=== PATIENT | male | born 1960 | race Caucasian/White ===

== ENCOUNTER 2019-11-25 23:01 | Emergency (ER) | payer MEDICARE, OTHER ==
[2019-11-25] MEDS ORDERED: SODIUM CHLORIDE 0.9% 500 ML 500 ML IV STA (23:24)
--- NOTE | 2019-11-25 23:49 | ED ---
URI HPI - General Chief Complaint: Upper Respiratory Infection Stated Complaint: SOB, cough Time Seen by Provider: 11/25/19 23:23 Source: patient, family Mode of arrival: ambulatory Limitations: no limitations - History of Present Illness Initial Comments: Sanjay a 59-year-old male presents the emergency department today for evaluation of a cough. Patient reports that he's had a cough since August, he is treated with antibiotics and steroids at that time with some temporary improvement. Patient reports that he then developed a cough again throughout September and October. He again didn't dose of azithromycin which ended 5 days ago with minimal improvement. Patient reports that the cough is minimally productive, worse when laying down. Cough is associated with sinus pressure and patient reports he can feel sinus drainage in his throat. Patient reports that today he had a subjective fever but does not have a vomiting home and therefore was unable to check his temperature. He does report that he took an Aleve or ibuprofen prior to coming to the hospital. Patient denies any chest pain, nausea, vomiting, change in bowel or bladder habits. - Related Data Previous Rx's Medication Instructions Recorded Benzonatate [Tessalon Perles] 100 mg PO TID #12 cap 11/26/19 Fluticasone Nasal Hines [Flonase 1 spray EA NOSTRIL DAILY #1 bottle 11/26/19 Nasal Hines] Allergies Allergy/AdvReac Type Severity Reaction Status Date / Time No Known Allergies Allergy Verified 11/25/19 23:11 Review of Systems ROS Statement: Those systems with pertinent positive or pertinent negative responses have been documented in the HPI. ROS Other: All systems not noted in ROS Statement are negative. Past Medical History Past Medical History: No Reported History History of Any Multi-Drug Resistant Organisms: None Reported Past Surgical History: Hernia Repair, Orthopedic Surgery, Tonsillectomy Additional Past Surgical History / Comment(s): back surgery, Past Psychological History: No Psychological Hx Reported Smoking Status: Former smoker Past Alcohol Use History: Daily Past Drug Use History: Marijuana General Exam - General Exam Comments Initial Comments: Physical Exam GENERAL: Patient is well-developed and well-nourished. Patient is nontoxic and well- hydrated and is in no distress. HENT: Normocephalic, Atraumatic. EYES: PERRL, EOMI PULMONARY: Unlabored respirations. No audible rales rhonchi or wheezing was noted. CARDIOVASCULAR: There is a regular rate and rhythm without any murmurs gallops or rubs. ABDOMEN: Soft and nontender with normal bowel sounds. SKIN: Skin is clear with no lesions or rashes and otherwise unremarkable. : Deferred NEUROLOGIC: Patient is alert and oriented x3. Moving all extremities spontaneously MUSCULOSKELETAL: Normal extremities with adequate strength and full range of motion. No lower extremity swelling or edema. No calf tenderness. PSYCHIATRIC: Normal psychiatric evaluation. Limitations: no limitations Course Vital Signs 11/25/19 11/25/19 11/25/19 23:06 23:32 23:38 Temperature 98.4 F 99.4 F Pulse Rate 97 90 Respiratory 18 20 20 Rate Blood Pressure 163/98 163/101 O2 Sat by Pulse 96 94 L Oximetry Medical Decision Making - Medical Decision Making Patient was seen and evaluated history is obtained from patient 5-year-old male with multiple months of postnasal drip nonproductive cough which improved with steroids he's done 2 rounds of antibiotics in the past she's been using Flonase for approximately one month Physical exam is relatively unremarkable patient is in no acute distress he does have a minimally productive cough at times Chest x-ray no acute findings Labs unremarkable no findings of the labs which would be consistent with rotavirus, in addition the patient's history is not consistent with this. These results were discussed with patient was reassured and discharged home in stable condition. - Lab Data Result diagrams: 11/25/19 23:38 11/25/19 23:38 Lab Results 11/25/19 11/25/19 Range/Units 23:38 23:38 WBC 10.2 (3.8-10.6) k/uL RBC 5.05 (4.30-5.90) m/uL Hgb 14.9 (13.0-17.5) gm/dL Hct 45.0 (39.0-53.0) % MCV 89.1 (80.0-100.0) fL MCH 29.5 (25.0-35.0) pg MCHC 33.1 (31.0-37.0) g/dL RDW 13.3 (11.5-15.5) % Plt Count 281 (150-450) k/uL Neutrophils % 72 % Lymphocytes % 15 % Monocytes % 6 % Eosinophils % 4 % Basophils % 1 % Neutrophils # 7.3 (1.3-7.7) k/uL Lymphocytes # 1.6 (1.0-4.8) k/uL Monocytes # 0.6 (0-1.0) k/uL Eosinophils # 0.5 (0-0.7) k/uL Basophils # 0.1 (0-0.2) k/uL Sodium 137 (137-145) mmol/L Potassium 4.5 (3.5-5.1) mmol/L Chloride 103 (98-107) mmol/L Carbon Dioxide 26 (22-30) mmol/L Anion Gap 8 mmol/L BUN 21 H (9-20) mg/dL Creatinine 1.08 (0.66-1.25) mg/dL Est GFR (CKD-EPI)AfAm 86 (>60 ml/min/1.73 sqM) Est GFR (CKD-EPI)NonAf 74 (>60 ml/min/1.73 sqM) Glucose 102 H (74-99) mg/dL Calcium 9.7 (8.4-10.2) mg/dL C-Reactive Protein <5.0 (<10.0) mg/L - EKG Data -: EKG Interpreted by Ia EKG shows normal: sinus rhythm Rate: normal EKG Comments: An EKG was obtained due to complaint of cough and shortness of breath, an EKG was obtained at 2318, rate is 86 rhythm is sinus there is a normal axis, normal intervals, RI 170, cure CD8, QTC is 421 there are no acute ST elevations or depressions no evidence of acute ischemia or infarction Disposition Clinical Impression: URI (upper respiratory infection) Disposition: HOME SELF-CARE Condition: Stable Prescriptions: Fluticasone Nasal Hines [Flonase Nasal Hines] 1 spray EA NOSTRIL DAILY #1 bottle Benzonatate [Tessalon Perles] 100 mg PO TID #12 cap Is patient prescribed a controlled substance at d/c from ED?: No Referrals: Felice Vaughn MD [Primary Care Provider] - 1-2 days
[2019-11-26 00:10] LABS: Basophils # (A) 0.1 k/uL (0-0.2); Basophils % (A) 1 %; Eosinophils # (A) 0.5 k/uL (0-0.7); Eosinophils % (A) 4 %; HGB 14.9 gm/dL (13.0-17.5); Lymphocytes # (A) 1.6 k/uL (1.0-4.8); Lymphocytes % (A) 15 %; MCH 29.5 pg (25.0-35.0); MCHC 33.1 g/dL (31.0-37.0); MCV 89.1 fL (80.0-100.0); Mean Platelet Volume 8.5; Monocytes # (A) 0.6 k/uL (0-1.0); Monocytes % (A) 6 %; Neutrophils # (A) 7.3 k/uL (1.3-7.7); Neutrophils % (A) 72 %; Platelet Count 281 k/uL (150-450); RBC 5.05 m/uL (4.30-5.90); RDW 13.3 % (11.5-15.5); WBC 10.2 k/uL (3.8-10.6)
--- NOTE | 2019-11-26 00:21 | XR ---
EXAMINATION TYPE: XR chest 1V DATE OF EXAM: 11/26/2019 COMPARISON: NONE HISTORY: Cough TECHNIQUE: Single view FINDINGS: Heart and mediastinum are normal. Lungs are clear of consolidation. There is small linear d ensity left lower lobe. There are chest leads. Bony thorax is intact. IMPRESSION: Mild subsegmental atelectasis left lower lobe. Normal heart.
[2019-11-26 00:30] LABS: African American GFR (CKD) 86 (>60 ml/min/1.73 sqM); Anion Gap 8 mmol/L; Blood Urea Nitrogen 21 mg/dL (9-20); Calcium 9.7 mg/dL (8.4-10.2); Carbon Dioxide 26 mmol/L (22-30); Chloride 103 mmol/L (98-107); Glucose 102 mg/dL (74-99); Non-African American GFR(CKD) 74 (>60 ml/min/1.73 sqM); Potassium 4.5 mmol/L (3.5-5.1); Sodium 137 mmol/L (137-145)
[2019-11-26 00:41] LABS: C Reactive Protein <5.0 mg/L (<10.0)
[2019-11-26 01:10] VITALS: BP 155/95; PULSE 82; RESP 16; TEMP 98.7
== END 2019-11-26 01:11 | disposition home or self-care (01) ==
LOC: EC 23:01
DX: J06.9 Acute upper respiratory infection, unspecified (principal); Z87.891 Personal history of nicotine dependence
CPT/HCPCS: 36415; 71045; 80048; 84145; 85025; 86140; 96360; 99285

== ENCOUNTER → 2020-08-03 | Outpatient (CLI) | payer MEDICARE ==
--- NOTE | 2020-08-03 12:58 | CT ---
EXAMINATION TYPE: CT sinus wo con DATE OF EXAM: 08/03/2020 COMPARISON: None HISTORY: Cough and sinus congestion. CT DLP: 618 mGycm CONTRAST: 0 mL of Isovue 300 The paranasal sinuses are examined in the axial plane at 2 mm thick sections. Reconstructed images i n the coronal plane were obtained. Because thickening is within the bilateral maxillary sinuses, right more so than left. Mild mucosal thickening is through bilateral ethmoid air cells. The sphenoid sinuses are clear. Frontal sinuses and mucosal thickening and opacification. The septum is evaluated. There is septal deviation to the right. Right septal spur is present. The ostiomeatal units are obstructed bilaterally IMPRESSIONS: 1. Chronic appearing sinusitis throughout the paranasal sinuses. 2. Obstructed ostiomeatal units.
== END | disposition home or self-care (01) ==
LOC: RADCTMAIN 12:13
PROVIDERS: ATTEND Otolaryngology
DX: J32.9 Chronic sinusitis, unspecified (principal); J34.89 Other specified disorders of nose and nasal sinuses; J98.8 Other specified respiratory disorders
CPT/HCPCS: 70486; 94060; 94726; 94729

== ENCOUNTER 2021-04-01 07:39 | Emergency (ER) | payer MEDICARE ==
[2021-04-01 07:44] VITALS: TEMP 98.1
[2021-04-01] MEDS ORDERED: IPRATROPIUM-ALBUTEROL 3 ML NEB INHALATION STA (08:00)
[2021-04-01] MEDS ORDERED: methylPREDNISolone SOD SUCCI 125 MG/2 ML VIAL IV STA (08:00)
--- NOTE | 2021-04-01 08:06 | ED ---
General Adult HPI - General Chief complaint: Shortness of Breath Stated complaint: cough, SOB Time Seen by Provider: 04/01/21 07:49 Source: patient Mode of arrival: ambulatory Limitations: no limitations - History of Present Illness Initial comments: 60-year-old male with a past medical history of back surgery, hernia repair, tonsillectomy presents to the emergency room for chronic cough times over 1 year. Patient states that this started in August 2019. States that he had a "breathing test" which was negative. He had a computed tomography scan of his sinuses which showed severe sinusitis so patient's doctor was thinking this could be causing his cough. He states that since that time he has been on and off antibiotic and steroids. He did have 3 months of relief at the end of last year however in August this started again. Patient has recently finished a course of doxycycline and a Medrol Dosepak and is currently on ciprofloxacin and Tessalon Perles which do not seem to be helping. Patient woke up this morning and had a coughing fit and called his primary care doctor on 5 AM who recommended he come to the emergency room for possible admission for IV antibiotics. He denies fevers at home. Patient denies any smoking history but is exposed to secondhand smoke through his . He denies any history of asthma. Patient has not yet seen a wooden fence erector. He does have an appointment with GI for scope in 3 days as his doctor sent him up at this as his cough could be related to GERD. Doubled his protonix. Patient has no other complaints at this time including shortness of breath, chest pain, abdominal pain, nausea or vomiting, headache, or visual changes. - Related Data Home Medications Medication Instructions Recorded Confirmed Benzonatate [Tessalon Perles] 100 mg PO TID PRN 03/30/21 04/01/21 Cetirizine HCl [Zyrtec] 10 mg PO DAILY@1200 03/30/21 04/01/21 Docusate Sodium [Dok] 100 mg PO BID PRN 03/30/21 04/01/21 HYDROcodone/APAP 10-325MG [[place] 1 tab PO TID 03/30/21 04/01/21 10-325] Montelukast Sodium [Singulair] 10 mg PO DAILY 03/30/21 04/01/21 Pantoprazole [Protonix] 40 mg PO BID 03/30/21 04/01/21 RX: Ciprofloxacin HCl 500 mg PO BID 03/30/21 04/01/21 Previous Rx's Medication Instructions Recorded RX: Albuterol Inhaler [Ventolin 2 puff INHALATION RT-QID PRN #1 04/01/21 Hfa Inhaler] inhaler RX: predniSONE 50 mg PO DAILY #5 tablet 04/01/21 Allergies Allergy/AdvReac Type Severity Reaction Status Date / Time No Known Allergies Allergy Verified 04/01/21 09:46 Review of Systems ROS Statement: Those systems with pertinent positive or pertinent negative responses have been documented in the HPI. ROS Other: All systems not noted in ROS Statement are negative. Past Medical History Past Medical History: GERD/Reflux Additional Past Medical History / Comment(s): "Chronic cough since 09/14,recurring sinus infections from acid reflux, continous mucous draining down throat when lay down". Sciaticia right leg. History of Any Multi-Drug Resistant Organisms: None Reported Past Surgical History: Back Surgery, Hernia Repair, Tonsillectomy Additional Past Surgical History / Comment(s): Back fusion with hardware to L5. EGD. Past Anesthesia/Blood Transfusion Reactions: No Reported Reaction, Postoperative Nausea & Vomiting (PONV) Additional Past Anesthesia/Blood Transfusion Reaction / Comment(s): Problems with Constipation after Anesthesia. "High tolerance to medications." Past Psychological History: No Psychological Hx Reported Smoking Status: Never smoker Past Alcohol Use History: Daily Past Drug Use History: Marijuana - Past Family History Father Family Medical History: Deep Vein Thrombosis (DVT), Myocardial Infarction ([place]) General Exam Limitations: no limitations General appearance: alert Head exam: Present: atraumatic Eye exam: Present: normal appearance, PERRL, EOMI. Absent: scleral icterus, conjunctival injection, periorbital swelling ENT exam: Present: normal exam, mucous membranes moist Neck exam: Present: normal inspection, full ROM Respiratory exam: Present: normal lung sounds bilaterally, wheezes (bilateral wheezes). Absent: respiratory distress, rales, rhonchi, stridor Cardiovascular Exam: Present: regular rate, normal rhythm, normal heart sounds. Absent: systolic murmur, diastolic murmur, rubs, gallop, clicks GI/Abdominal exam: Present: soft, normal bowel sounds. Absent: distended, tenderness, guarding, rebound, rigid Neurological exam: Present: alert Psychiatric exam: Present: normal affect, normal mood Course Vital Signs 04/01/21 04/01/21 04/01/21 07:42 08:10 08:16 Temperature 98.1 F Pulse Rate 79 80 80 Respiratory 18 20 Rate Blood Pressure 153/91 157/92 O2 Sat by Pulse 96 99 Oximetry 04/01/21 04/01/21 08:28 09:48 Temperature Pulse Rate 82 79 Respiratory 20 Rate Blood Pressure 143/80 O2 Sat by Pulse 95 Oximetry EKG Findings - EKG Comments: EKG Findings:: Normal sinus rhythm, ventricular rate 79, CO interval 168, QTc 442 Medical Decision Making - Medical Decision Making Vitals are stable. Patient is 95-99% on room air. Patient is well appearing. respirations are even and unlabored. Patient is not in any respiratory distress. CBC is unremarkable. White blood cell count is normal at 8. CMP unremarkable. Troponin negative. D-dimer negative. EKG nonischemic. Coronavirus is negative. Chest x-ray shows no acute process. I did speak with Dr. Henry regarding this case as patient was under the impression that he was when to be admitted. However I agree with Dr. Mendez, patient does not meet any admission criteria he will need to follow up outpatient and his endoscopy as well as primary care's office. I did also give him referral to pulmonology. We will restart patient on steroids as he states this is the only thing that has helped him in the past. He will return here for any worsening symptoms. - Lab Data Result diagrams: 04/01/21 08:16 04/01/21 08:16 Lab Results 04/01/21 04/01/21 04/01/21 Range/Units 08:16 08:16 08:16 WBC 8.0 (3.8-10.6) k/uL RBC 5.03 (4.30-5.90) m/uL Hgb 15.3 (13.0-17.5) gm/dL Hct 46.4 (39.0-53.0) % MCV 92.2 (80.0-100.0) fL MCH 30.4 (25.0-35.0) pg MCHC 32.9 (31.0-37.0) g/dL RDW 13.0 (11.5-15.5) % Plt Count 310 (150-450) k/uL MPV 8.7 Neutrophils % 67 % Lymphocytes % 19 % Monocytes % 7 % Eosinophils % 4 % Basophils % 1 % Neutrophils # 5.4 (1.3-7.7) k/uL Lymphocytes # 1.5 (1.0-4.8) k/uL Monocytes # 0.6 (0-1.0) k/uL Eosinophils # 0.3 (0-0.7) k/uL Basophils # 0.1 (0-0.2) k/uL PT 10.6 (9.0-12.0) sec INR 1.0 (<1.2) APTT 24.9 (22.0-30.0) sec D-Dimer <0.17 (<0.60) mg/L FEU Sodium 138 (137-145) mmol/L Potassium 4.5 (3.5-5.1) mmol/L Chloride 104 (98-107) mmol/L Carbon Dioxide 26 (22-30) mmol/L Anion Gap 8 mmol/L BUN 22 H (9-20) mg/dL Creatinine 1.04 (0.66-1.25) mg/dL Est GFR (CKD-EPI)AfAm 90 (>60 ml/min/1.73 sqM) Est GFR (CKD-EPI)NonAf 78 (>60 ml/min/1.73 sqM) Glucose 105 H (74-99) mg/dL Plasma Lactic Acid Dillon (0.7-2.0) mmol/L Calcium 9.7 (8.4-10.2) mg/dL Magnesium 2.3 (1.6-2.3) mg/dL Total Bilirubin 0.8 (0.2-1.3) mg/dL AST 26 (17-59) U/L ALT 21 (4-49) U/L Alkaline Phosphatase 54 (38-126) U/L Troponin I (0.000-0.034) ng/mL NT-Pro-B Natriuret Pep pg/mL Total Protein 7.1 (6.3-8.2) g/dL Albumin 4.5 (3.5-5.0) g/dL Coronavirus (PCR) (Not Detectd) 04/01/21 04/01/21 04/01/21 Range/Units 08:16 08:16 08:16 WBC (3.8-10.6) k/uL RBC (4.30-5.90) m/uL Hgb (13.0-17.5) gm/dL Hct (39.0-53.0) % MCV (80.0-100.0) fL MCH (25.0-35.0) pg MCHC (31.0-37.0) g/dL RDW (11.5-15.5) % Plt Count (150-450) k/uL MPV Neutrophils % % Lymphocytes % % Monocytes % % Eosinophils % % Basophils % % Neutrophils # (1.3-7.7) k/uL Lymphocytes # (1.0-4.8) k/uL Monocytes # (0-1.0) k/uL Eosinophils # (0-0.7) k/uL Basophils # (0-0.2) k/uL PT (9.0-12.0) sec INR (<1.2) APTT (22.0-30.0) sec D-Dimer (<0.60) mg/L FEU Sodium (137-145) mmol/L Potassium (3.5-5.1) mmol/L Chloride (98-107) mmol/L Carbon Dioxide (22-30) mmol/L Anion Gap mmol/L BUN (9-20) mg/dL Creatinine (0.66-1.25) mg/dL Est GFR (CKD-EPI)AfAm (>60 ml/min/1.73 sqM) Est GFR (CKD-EPI)NonAf (>60 ml/min/1.73 sqM) Glucose (74-99) mg/dL Plasma Lactic Acid Dillon 1.0 (0.7-2.0) mmol/L Calcium (8.4-10.2) mg/dL Magnesium (1.6-2.3) mg/dL Total Bilirubin (0.2-1.3) mg/dL AST (17-59) U/L ALT (4-49) U/L Alkaline Phosphatase (38-126) U/L Troponin I <0.012 (0.000-0.034) ng/mL NT-Pro-B Natriuret Pep 53 pg/mL Total Protein (6.3-8.2) g/dL Albumin (3.5-5.0) g/dL Coronavirus (PCR) (Not Detectd) 04/01/21 Range/Units 08:16 WBC (3.8-10.6) k/uL RBC (4.30-5.90) m/uL Hgb (13.0-17.5) gm/dL Hct (39.0-53.0) % MCV (80.0-100.0) fL MCH (25.0-35.0) pg MCHC (31.0-37.0) g/dL RDW (11.5-15.5) % Plt Count (150-450) k/uL MPV Neutrophils % % Lymphocytes % % Monocytes % % Eosinophils % % Basophils % % Neutrophils # (1.3-7.7) k/uL Lymphocytes # (1.0-4.8) k/uL Monocytes # (0-1.0) k/uL Eosinophils # (0-0.7) k/uL Basophils # (0-0.2) k/uL PT (9.0-12.0) sec INR (<1.2) APTT (22.0-30.0) sec D-Dimer (<0.60) mg/L FEU Sodium (137-145) mmol/L Potassium (3.5-5.1) mmol/L Chloride (98-107) mmol/L Carbon Dioxide (22-30) mmol/L Anion Gap mmol/L BUN (9-20) mg/dL Creatinine (0.66-1.25) mg/dL Est GFR (CKD-EPI)AfAm (>60 ml/min/1.73 sqM) Est GFR (CKD-EPI)NonAf (>60 ml/min/1.73 sqM) Glucose (74-99) mg/dL Plasma Lactic Acid [place] (0.7-2.0) mmol/L Calcium (8.4-10.2) mg/dL Magnesium (1.6-2.3) mg/dL Total Bilirubin (0.2-1.3) mg/dL AST (17-59) U/L ALT (4-49) U/L Alkaline Phosphatase (38-126) U/L Troponin I (0.000-0.034) ng/mL NT-Pro-B Natriuret Pep pg/mL Total Protein (6.3-8.2) g/dL Albumin (3.5-5.0) g/dL Coronavirus (PCR) Not Detected (Not Detectd) Disposition Clinical Impression: Chronic cough Disposition: HOME SELF-CARE Condition: Good Instructions (If sedation given, give patient instructions): Chronic Cough (ED) Additional Instructions: Please follow up with Dr. Vaughn. Follow-up with pulmonology. Return to the emergency room for any worsening symptoms. Prescriptions: RX: predniSONE 50 mg PO DAILY #5 tablet RX: Albuterol Inhaler [Ventolin Hfa Inhaler] 2 puff INHALATION RT-QID PRN #1 inhaler PRN Reason: Shortness Of Breath Is patient prescribed a controlled substance at d/c from ED?: No Referrals: Felice Vaughn MD [Primary Care Provider] - 1-2 days Royal Gonzales MD [STAFF PHYSICIAN] - 1-2 days Time of Disposition: 10:20
[2021-04-01 08:33] VITALS: RESP 20
[2021-04-01 08:42] LABS: Basophils # (A) 0.1 k/uL (0-0.2); Basophils % (A) 1 %; Eosinophils # (A) 0.3 k/uL (0-0.7); Eosinophils % (A) 4 %; HCT 46.4 % (39.0-53.0); HGB 15.3 gm/dL (13.0-17.5); Lymphocytes # (A) 1.5 k/uL (1.0-4.8); Lymphocytes % (A) 19 %; MCH 30.4 pg (25.0-35.0); MCHC 32.9 g/dL (31.0-37.0); MCV 92.2 fL (80.0-100.0); Mean Platelet Volume 8.7; Monocytes # (A) 0.6 k/uL (0-1.0); Monocytes % (A) 7 %; Neutrophils # (A) 5.4 k/uL (1.3-7.7); Neutrophils % (A) 67 %; Platelet Count 310 k/uL (150-450); RBC 5.03 m/uL (4.30-5.90)
[2021-04-01 08:47] LABS: Albumin 4.5 g/dL (3.5-5.0); Calcium 9.7 mg/dL (8.4-10.2); Magnesium 2.3 mg/dL (1.6-2.3); Potassium 4.5 mmol/L (3.5-5.1); Total Bilirubin 0.8 mg/dL (0.2-1.3); Total Protein 7.1 g/dL (6.3-8.2)
[2021-04-01 09:01] LABS: Partial Thromboplastin Time 24.9 sec (22.0-30.0); Prothrombin Time 10.6 sec (9.0-12.0)
--- NOTE | 2021-04-01 09:12 | XR ---
EXAMINATION TYPE: XR chest 2V DATE OF EXAM: 04/01/2021 COMPARISON: 11/25/2019 INDICATION: Difficulty breathing TECHNIQUE: Single frontal view of the chest is obtained. FINDINGS: The heart size is normal. The pulmonary vasculature is normal. The lungs are clear. IMPRESSION: 1. No acute pulmonary process.
[2021-04-01 09:49] VITALS: BP 143/80; PULSE 79
== END 2021-04-01 10:36 | disposition home or self-care (01) ==
LOC: EC 07:39
DX: R05 Cough (principal); K21.9 Gastro-esophageal reflux disease without esophagitis; F12.90 Cannabis use, unspecified, uncomplicated; Z79.51 Long term (current) use of inhaled steroids; Z79.52 Long term (current) use of systemic steroids; Z79.899 Other long term (current) drug therapy
CPT/HCPCS: 36415; 94640; 93005; 85379; 83880; 80053; 83605; 83735; 84484; 85025; 85610; 85730; 87635; 71046; 96374; 99284; J2930

== ENCOUNTER 2021-04-04 09:56 | Day surgery (SDC) | payer MEDICARE ==
[2021-03-30 14:25] VITALS: BMI 31.5
[~2021-04-04 09:56] MED LIST: LIDOCAINE 1% (10MG/ML) FOR IV START INTRADERMA PRN
[2021-04-04] MEDS: LACTATED RINGERS 1,000 ML IV SCH ×2 (10:16→10:25)
[2021-04-04 10:33] VITALS: TEMP 97.5
[2021-04-04] MEDS ORDERED: MIDAZOLAM 2 MG/2 ML VIAL ONE (11:13)
[2021-04-04] MEDS ORDERED: PROPOFOL 10 MG/ML 20 ML VIAL IV ONE (11:13)
[2021-04-04] MEDS ORDERED: fentaNYL (PF) 50 MCG/ML 2 ML AMP ONE (11:13)
--- NOTE | 2021-04-04 11:34 | P.PCN ---
Date of Procedure: 04/04/21 Description of Procedure: BRIEF HISTORY: Patient is a 60-year-old male presenting for outpatient esophagogastroduodenoscopy for evaluation of GERD and chronic cough. Patient reports a long-standing history of reflux previously on omeprazole currently on pantoprazole. He reports episodes of coughing predominantly in the morning with associated shortness of breath.. PROCEDURE PERFORMED: Esophagogastroduodenoscopy with biopsy. PREOPERATIVE DIAGNOSIS: GERD, chronic cough. ESTIMATED BLOOD LOSS: Minimal. IV sedation per anesthesia. PROCEDURE: After informed consent was obtained, the patient was brought into the endoscopy unit. IV sedation was administered by Anesthesia under continuous monitoring. Initially the Olympus GIF-190 video endoscope was inserted into the mouth. Esophagus intubated without any difficulty. It was gradually advanced into the stomach and duodenum and carefully examined. The bulb and the second part of the duodenum appeared normal, with biopsies taken to rule out celiac sprue. The scope at this time was withdrawn to the stomach, adequately insufflated with air, and upon careful examination, mucosa of the antrum, body, cardia and the fundus appeared normal, with biopsies taken of the antrum and body with some mild scattered erythema in the antrum and body suggestive of mild gastritis. The scope was then withdrawn into the esophagus. The GE junction was located at 39 cm from the incisors. The esophagus appeared normal, with biopsies of the lower esophagus and midesophagus. There were no erosions or ulcerations seen and the patient tolerated the procedure well. IMPRESSION: 1. Mild gastritis. 2. Biopsies of the duodenum, antrum and body, lower esophagus and midesophagus. RECOMMENDATIONS: The findings of this examination were discussed with the patient and his family. Okay to resume diet. Okay to resume medications. Await pathology from biopsies. Continue current medical management.
[2021-04-04 11:54] VITALS: BP 147/82; PULSE 55; RESP 18
== END 2021-04-04 12:40 | disposition home or self-care (01) ==
LOC: ORWHC2ENDO 09:56
PROVIDERS: ATTEND Internal Medicine
DX: K21.9 Gastro-esophageal reflux disease without esophagitis (principal); K29.50 Unspecified chronic gastritis without bleeding; K21.00 Gastro-esophageal reflux disease with esophagitis, without bleeding; Z87.891 Personal history of nicotine dependence; Z98.890 Other specified postprocedural states; Z79.891 Long term (current) use of opiate analgesic; Z79.52 Long term (current) use of systemic steroids; Z79.899 Other long term (current) drug therapy
CPT/HCPCS: 88305; 43239; J2250; J3010; J2704

== ENCOUNTER → 2021-06-06 | Outpatient (CLI) | payer MEDICARE | END | disposition home or self-care (01) | LOC: LABWHC1 13:24 | PROVIDERS: ATTEND Otolaryngology | DX: L50.0 Allergic urticaria (principal) | CPT/HCPCS: 36415; 86001 ==

== ENCOUNTER → 2021-06-16 | Outpatient (CLI) | payer MEDICARE ==
--- NOTE | 2021-06-16 18:22 | CT ---
EXAMINATION TYPE: CT facial bones wo con DATE OF EXAM: 06/16/2021 COMPARISON: None immediately HISTORY: chronic sinus pressure CT DLP: 599.[address] of the paranasal sinuses was performed in the axial and coronal planes. Bone and soft tissue settings are submitted. Moderate mucosal thickening is noted of the right maxillary sinus. Mild mucosal thickening left maxil mathew sinus. Moderate opacification of the remaining ethmoid air cells. Mild mucosal thickening of the sphenoid sinus and frontal sinuses. Ostiomeatal units are obstructed bilaterally. The nasal septum is midline. No bony destructive changes are seen within the field of view. IMPRESSION: Chronic pansinusitis
--- NOTE | 2021-06-16 18:23 | CT ---
EXAMINATION TYPE: CT chest w con DATE OF EXAM: 06/16/2021 COMPARISON: None HISTORY: SOB, COPD CT DLP: 458.9 mGycm Automated exposure control for dose reduction was used. CONTRAST: CT scan of the chest is performed with IV Contrast, patient injected with 100 mL of Isovue 370. FINDINGS: LUNGS: The lungs are grossly clear, there is no concerning parenchymal mass or nodule identified. T here is no pleural effusion or pneumothorax seen. The tracheobronchial tree is patent. MEDIASTINUM: There are no greater than 1 cm hilar or mediastinal lymph nodes. No pericardial effusi on is seen. Thoracic aorta is of normal caliber. The heart is not enlarged. UPPER ABDOMEN: No significant abnormality appreciated. OTHER: No additional significant abnormality is seen. IMPRESSION: Unremarkable CT chest
== END | disposition home or self-care (01) ==
LOC: RADCTMAIN 16:06
PROVIDERS: ATTEND Family Medicine
DX: J44.9 Chronic obstructive pulmonary disease, unspecified (principal); J32.4 Chronic pansinusitis
CPT/HCPCS: 70486; 71260; Q9967

== ENCOUNTER 2021-08-02 07:18 | Day surgery (SDC) | payer MEDICARE ==
[2021-07-31 15:01] VITALS: BMI 30.7
[~2021-08-02 07:18] MED LIST changes: +DEXAMETHASONE SOD PHOSPHATE 4 MG/ML 1 ML VIAL IV ONE; +DEXAMETHASONE SOD PHOSPHATE 4 MG/ML 1 ML VIAL IV PRN; +FAMOTIDINE 20 MG/2 ML VIAL IV PRN; +HYDROmorphone 0.5 MG/0.5 ML SYRINGE IVP PRN; +LACTATED RINGERS 1,000 ML IV SCH; +MIDAZOLAM 2 MG/2 ML VIAL IV PRN; +ONDANSETRON 4 MG/2 ML VIAL IVP ONE; +ONDANSETRON 4 MG/2 ML VIAL IVP PRN; +OXYMETAZOLINE 0.05% NASL SPRAY 1 SPRAY BOTTLE EA NOSTRIL PRN
[2021-08-02] MEDS ORDERED: LACTATED RINGERS 1,000 ML IV ONE ×2 (08:49→11:04)
[2021-08-02] MEDS ORDERED: HYDROmorphone (PF) 1 MG/ML ONE (08:50)
[2021-08-02] MEDS ORDERED: LIDOCAINE 1% INJ 10MG/ML (20 ML MDV) ONE (08:50)
[2021-08-02] MEDS ORDERED: PROPOFOL 10 MG/ML 20 ML VIAL IV ONE (08:50)
[2021-08-02] MEDS ORDERED: .fentaNYL (PF) 50 MCG/ML 2 ML AMP ONE (08:50)
[2021-08-02] MEDS ORDERED: MIDAZOLAM 2 MG/2 ML VIAL ONE (08:50)
[2021-08-02] MEDS ORDERED: SUCCINYLCHOLINE CHLORIDE 100 MG/5 ML SYR IV ONE (08:50)
[2021-08-02] MEDS ORDERED: LIDOCAINE 1%-EPI 1:100,000 20 ML VIAL SUBMUCOSAL ONE (09:20)
--- NOTE | 2021-08-02 10:15 | P.OP ---
Date of Procedure: 08/02/21 Preoperative Diagnosis: The the nasal septum Inferior turbinate hypertrophy Chronic sinusitis Postoperative Diagnosis: Same Procedure(s) Performed: Septoplasty OutFracture and submucous resection of the inferior turbinates Bilateral endoscopic sinus surgery including bilateral maxillary antrostomy with removal of tissue from the maxillary sinuses, bilateral anterior and posterior ethmoidectomy bilateral frontal sinusotomy with removal of tissue from The Frontal Sinuses and Bilateral Sphenoidotomy with Removal of Tissue from the Sphenoid Sinuses Anesthesia: SASCHAA Surgeon: Rell Chester Estimated Blood Loss (ml): 10 Pathology: other (Nasal septal bone and cartilage and sinus contents) Condition: stable Disposition: PACU Indications for Procedure: This is a 61-year-old white male whose had difficulties with chronic nasal airway obstruction congestion recurrent and chronic sinusitis with chronic postnasal drainage. Computed tomography scan showed pansinus disease Operative Findings: Nasal septum deviated to the right with inferior turbinate hypertrophy bilaterally. The sinuses had small polyps and cysts bilaterally the ethmoid frontal and sphenoid sinuses had diffuse mucosal thickening and small polyps Description of Procedure: The patient was brought into the operative suite and placed in a supine position. The patient underwent induction of general anesthesia with oral endotracheal intubation without difficulty. The patient was prepped and draped in the usual aseptic fashion with the orbits in the operating field for monitoring to the case and the computed tomography scan was on the computer screen for review throughout the case. 1% lidocaine with 1 :100,000 epinephrine was infused submucosally into both sides of the nasal septum as well as the lateral nasal wall and anterior tips of the middle turbinates. While this was taking vasoconstrictive effect the inferior turbinates were infractured with [place] elevator and partial submucous resection of the inferior turbinates was performed with a portion of the submucosal soft tissue and the inferior turbinate bone removed with Coblation device. The inferior turbinates were then outfractured with the [place] elevator. A left hemitransfixion incision was then made with the mucoperichondrial and mucoperiosteal flap on the left elevated. The bony cartilaginous junction was disarticulated and the mucoperiosteal flap on the right was elevated. Bony nasal septal deformities were removed with Danie forceps and an inferior cartilaginous strip was removed leaving a full 1.5 cm caudal strut. Checking intranasally this corrected the nasoseptal deformities and the hemitransfixion incision was closed with a running 4-0 chromic suture. Full 0 endoscopic examination is performed bilaterally. Beginning on the left, the middle turbinate was medialized. The maxillary ostium was located with a ballpoint probe and an infundibulotomy was performed followed by uncinectomy. The maxillary antrostomy was enlarged at the expense of the anterior and posterior fontanelle taking care anteriorly not to injure the lacrimal bone. The maxillary sinus was evaluated with 30 and 70 endoscope .[Abnormal appearing tissue was removed from the maxillary sinus]. Anterior and posterior ethmoidectomy were then performed from anterior to posterior to the level of the skull base. The roof of the anterior ethmoid air cells were then cleaned from posterior to anterior using up-biting Blakesley forceps. The frontal sinus was opened with a curved suction and giraffe forceps. The frontal sinus was then explored with 30 endoscope.[Abnormal tissue was removed from the frontal sinus]. The sphenoid sinus was opened with straight suction and straight Blakesley forceps. The sphenoid sinus was then explored with 0 endoscope.[Abnormal tissue was removed from the sphenoid sinus]. Attention was then turned to the right where the procedures were followed as they had been on the left. [Nasopore nasal dressing was placed in the middle meatus bilaterally under direct visualization]. Bilateral Luna airway splints coated with bacitracin ointment were placed and sutured transseptally with a 4-0 nylon suture. The patient was suctioned in oral gastric fashion and was allowed to emerge from general anesthesia having tolerated procedure well and was extubated in the operating suite and transferred to the postoperative recovery area in satisfacto ry condition.
[2021-08-02 10:25] VITALS: TEMP 97.4
[2021-08-02 10:34] VITALS: RESP 16
[2021-08-02] MEDS ORDERED: ACETAMINOPHEN TAB 500 MG TAB PO ONE (11:30)
[2021-08-02] MEDS ORDERED: ACETAMINOPHEN TAB 500 MG TAB ONE (11:38)
[2021-08-02 11:40] VITALS: BP 131/80; PULSE 63
== END 2021-08-02 11:59 | disposition home or self-care (01) ==
LOC: OR 07:18
PROVIDERS: ATTEND Otolaryngology
DX: J34.2 Deviated nasal septum (principal); J32.9 Chronic sinusitis, unspecified; J34.3 Hypertrophy of nasal turbinates; K21.9 Gastro-esophageal reflux disease without esophagitis; Z82.61 Family history of arthritis; Z84.89 Family history of other specified conditions; Z98.890 Other specified postprocedural states; Z79.891 Long term (current) use of opiate analgesic; Z79.899 Other long term (current) drug therapy; Z91.048 Other nonmedicinal substance allergy status
CPT/HCPCS: 88305; 88300; 30520; 31267; 31253; 31259; 30140; J2250; J1100; J2405; J0690; J2001; J3010; J1170; J0330; J2704